=== PATIENT | male | born 1950 | race Caucasian/White ===

== ENCOUNTER → 2020-09-23 | Outpatient (CLI) | payer OTHER, MEDICARE ==
[2020-06-30 11:00] VITALS: BP 111/56
[~2020-09-23] MED LIST: ALBU2.5V8 IH; ALLO100T PO; FLUT1DIS5 IH; FLUT9.9S NS; FURO20TA3 PO; GABA600T7 PO; LOSA25TA54 PO; METO25TA4 PO; MONT10TA49 PO; NICO1PAT21 TD; POTA10TA17 PO; REGADENOSON 0.4 MG/5 ML DISP.SYRIN. IV ONE; SODI30SP NS; TAMS0.4C97 PO; WARF2TAB96 PO; XOPENEX0.63 MG/3 NEB
--- NOTE | 2020-09-23 18:51 | RAD ---
MR#: [id number] Date of Study: 09/23/2020 Ordering Physician: FABRICIO OHARA, Referring Physician: PIETRO TONG Tech: RT Rodrigue CorbettR) (N) APPROVED REPORT Test Type: Pharmacological Stress Nurse/Tech: Nickie Alexandre RN Test Indications: A-fib Cardiac History: Hypertension,smoker/COPD Medications: See Electronic Medical Record Medical History: See Electronic Medical Record Resting ECG: A-fib Resting Heart Rate: 56 bpm Resting Blood Pressure: 111/53mmHg Pretest Chest Pain: No chest pain Nurse/Tech Notes S1,S2 and lungs diminished in the bases. Consent: The procedure was explained to the patient in lay terms. Informed consent was witnessed. Gama eout was entered into [facility]. History and Stress Test performed by RT Neli (R) (N) Pharm. Details Pharmacologic stress testing was performed using 0.4mg per 5ml of regadenoson given intravenously ove r 7-10 seconds. Stress Symptoms Dyspnea Chest pain typical of angina occurred (Severity 8/10 , 1 min duration). POST EXERCISE Reason for Termination: Infusion complete Target HR: No Max HR: 114 bpm Max Blood Pressure: 139/62mmHg Blood Pressure response to exercise: Normal blood pressure response during stress. Heart Rate response to exercise: WNL Chest Pain: Yes. Dyspnea and he stated it felt like an elephant was sitting on his chest which resolv ed after 1 minute Arrhythmia: No. ST Change: No. INTERPRETATION Stress EKG Conclusion: No evidence of stress induced EKG changes Imaging Protocol IMAGE PROTOCOL: Rest Tc-99m/stress Tc-99m 1 day Rest: Stress: Viability: Radiopharm.Tc99m [id number] Sestamibi Dose10.5mCi 33mCi Duration 15min. 15min. Img Date 09/23/2020 09/23/2020 Inj-Img Mnpv25pnn. 60min. Rest Admin Site:IV - Right AntecubitalAdministrator:RT Neli (R)(N) Stress Admin Site: IV - Right AntecubitalAdministrator: TG Barr STRESS DATA End Diast. Vol.114.0mlAv. Heart Rate64.0bpm End Syst. Vol.39.0mlCO Index BSA0.0L/min Myocardial Hpvz397.0gEject. Dhydvkrw55.0% Stress Rates Pk. Fill Rate2.58EDV/secLVtime Pk. Fill 248.80msec Pk. Empty Rate3.36ESV/secLVtime Pk. Cmcqr964.68msec 02/22 Pk. Fill1.41EDV/sec Stress Scores Regional WT0.00Summed WT2.00 Regional WM0.00Summed WM0.00 LV Perfusion There is a moderate to large size fixed basal to distal inferior wall perfusion defect suggestive of prior infarct. Based on normal EKG, normal wall motion this is likely related to subdiaphragmatic at tenuation artifact. Wall Motion Normal wall motion with ejection fraction of 65%. LV Perf. Quant 17 Seg. SSS11.00 17 Seg. SRS10.00 17 Seg. SDS1.00 Stress Defect Extent (% LAD)1.30Rest Defect Extent (% LAD)0.60Rev. Defect Extent (% LAD)0.00 Stress Defect Extent (% LCX) 30.00Rest Defect Extent (% LCX)32.50Rev. Defect Extent (% LCX)0.00 Stress Defect Extent (% RCA)14.40Rest Defect Extent (% RCA)20.00Rev. Defect Extent (% RCA)3.30 Stress Defect Extent (% JENNIFER)15.40Rest Defect Extent (% JENNIFER)14.60Rev. Defect Extent (% JENNIFER)2.00 Other Information Quality:Average Risk Assessment: Low-Moderate Risk Conclusion 1. No evidence of stress-induced EKG changes 2. Moderate to large size fixed inferior wall defect suggestive of prior infarct but based on normal EKG without Q waves, normal ejection fraction this is likely related to subdiaphragmatic attenuation artifact. 3. Significant motion artifact noted 4. Normal EF of greater than 60%. 5. Low risk study overall. Signed by : Fabricio Ohara, Electronically Approved : 09/23/2020 18:50:57
== END ==
LOC: NM 08:24
PROVIDERS: ATTEND Internal Medicine Cardiovascular Disease
DX: I48.0 Paroxysmal atrial fibrillation (principal); I10 Essential (primary) hypertension; F17.200 Nicotine dependence, unspecified, uncomplicated; J44.9 Chronic obstructive pulmonary disease, unspecified
CPT/HCPCS: 78452; 93017; A9500; J2785